=== PATIENT | female | born 2000 | race Caucasian/White ===

== ENCOUNTER → 2024-03-14 14:48 | Outpatient (REF) | payer OTHER, SELFPAY | LOC: WDC 14:48 | PROVIDERS: ATTENDING PHYSICIAN Surgery; FAMILY PHYSICIAN Nurse Practitioner Family | DX: R92.2 Inconclusive mammogram (principal) | CPT/HCPCS: 76641 ==

== ENCOUNTER → 2024-08-14 11:25 | Outpatient (REF) | payer SELFPAY | LOC: HWRAD 11:25 | PROVIDERS: ATTENDING PHYSICIAN Nurse Practitioner Family | DX: R19.5 Other fecal abnormalities (principal); R11.0 Nausea | CPT/HCPCS: 76700 ==

== ENCOUNTER 2025-09-02 04:14 | Emergency (ER) | payer OTHER, SELFPAY ==
[2025-09-02 04:23] VITALS: BP 106/71
--- NOTE | 2025-09-02 07:54 | ED.MUSCINJ ---
HPI-Injury
General
Chief Complaint: Musculo-Skeletal Complaint
Source: patient
Exam Limitations: none
Time Seen by Provider: 09/02/25 07:45
History of Present Illness-Injury
Initial Injury comments:
25-year-old female presents complaining of pain to the right buttock she has had for the past 3 days. She is on control and is worried that she had a blood clot. She denies any chest pain or shortness of breath. No known injury. Hurts to
bear weight and hurts to sit on it. No fevers. No obvious leg swelling. No other complaint
Phy Exam
Physical Exam
Physical Exam:
General: Well-appearing female no acute respiratory distress
Musculoskeletal exam: There is increased pain to gluteal area with hyperflexion of the right hip. No deformities good range of motion internal/external rotation of the hip. The spine is nontender
Vascular: No swelling of the leg 2+ DP pulse right foot no calf tenderness
Injury Course
Orders/Labs/Results
Orders:
Orders
09/02/25 07:54
Venous Doppler Lwr Ext Rt [US Periph Venous LOWER Ext RT] Urgent
Comment:
Reason For Exam: pain in leg, on OCP
MDM/Problems Addressed
Differential Diagnosis Includes:
Atraumatic right buttock pain. Patient concerned about potential for DVT given the fact she is on oral contraceptives. This would be an atypical presentation however will order ultrasound. Suspect possible muscular strain
*Pulse Oximetry
SaO2: 99
Oxygen Mode of Delivery: Room air
Patient hypoxic: no
*Critical Care Note
Total Time (30-74mins, 75-104mins- exclusive of procedures): Not Applicable
Update Note
Update Note:
Venous ultrasound negative for DVT. Patient reassured. I suspect muscular strain. Stable for discharge
ED Attending Note
-
Portions of this chart may have been created with voice recognition software.� Occasional wrong word or��sound alike� substitutions may have occurred due to the inherent limitations of voice recognition software.
Discharge Plan
Departure
Patient Disposition: Home (Routine Discharge)
Date of Disposition: 09/02/25
Time of Disposition: 10:49
Patient with high blood pressure during this ER visit?: No
Discharge Problem:
Muscle strain
Instructions: Muscle and Bone Pain (DC)
Referrals:
MARCEL POLO DO [Family Provider, Family Practice]
Activity Restrictions/Additional Instructions:
Rest. Continue with ibuprofen or Tylenol for pain. Return if worse otherwise follow-up with your doctor
Interventions
Interventions:
*General Assessment Last Done: 09/02/25 04:23
*Neglect/Abuse Screening Last Done: 09/02/25 04:23
*ED COVID-19 Vaccine History Last Done: 09/02/25 04:23
*ED Influenza Vaccine History Last Done: 09/02/25 04:23
*Risk Screen - Suicide (C-SSRS) Last Done: 09/02/25 04:23
Discharge Date and Time
Print Language: SYRIAC
== END 2025-09-02 11:03 | disposition home or self-care (01) ==
LOC: EMR 04:14
PROVIDERS: EMERGENCY PHYSICIAN Student in an Organized Health Care Education/Training Program; FAMILY PHYSICIAN Family Medicine
DX: M79.18 Myalgia, other site (principal); M79.604 Pain in right leg; Z79.3 Long term (current) use of hormonal contraceptives
CPT/HCPCS: 99284; 93971